=== PATIENT | male | born 1950 | race Caucasian/White ===

== ENCOUNTER 2016-07-19 08:24 | Outpatient (CLI) | payer OTHER ==
[2013-03-04 19:24] VITALS: BP 139/77
[2016-07-19 09:20] LABS: eGFR (African) > 60; eGFR (Non-African) > 60
== END 2016-07-19 08:25 ==
LOC: LAB 08:24
PROVIDERS: ATTEND Family Medicine
DX: E11.9 Type 2 diabetes mellitus without complications (principal); Z11.59 Encounter for screening for other viral diseases
CPT/HCPCS: 80053; 80061; 82043; 83036; 86803

== ENCOUNTER 2017-01-18 08:27 | Outpatient (CLI) | payer OTHER ==
[2013-03-04 19:24] VITALS: BP 139/77
[2017-01-18 09:17] LABS: eGFR (African) > 60; eGFR (Non-African) > 60
== END 2017-01-18 08:30 ==
LOC: LAB 08:27
PROVIDERS: ATTEND Family Medicine
DX: E11.9 Type 2 diabetes mellitus without complications (principal)
CPT/HCPCS: 36415; 80053; 83036

== ENCOUNTER 2017-02-22 06:59 | Outpatient (CLI) | payer OTHER ==
[2013-03-04 19:24] VITALS: BP 139/77
== END 2017-02-22 07:00 ==
LOC: LAB 06:59
PROVIDERS: ATTEND Family Medicine
DX: Z53.9 Procedure and treatment not carried out, unspecified reason (principal)

== ENCOUNTER 2017-07-21 12:10 | Outpatient (CLI) | payer OTHER ==
[2013-03-04 19:24] VITALS: BP 139/77
[2017-07-21 13:15] LABS: eGFR (African) > 60; eGFR (Non-African) > 60
== END 2017-07-21 12:11 ==
LOC: LAB 12:10
PROVIDERS: ATTEND Family Medicine
DX: E11.9 Type 2 diabetes mellitus without complications (principal); Z12.5 Encounter for screening for malignant neoplasm of prostate
CPT/HCPCS: 36415; 80053; 80061; 82043; 83036; 84153; G0103

== ENCOUNTER 2017-10-24 08:54 | Outpatient (CLI) | payer OTHER ==
[2013-03-04 19:24] VITALS: BP 139/77
[2017-10-24 09:55] LABS: eGFR (Non-African) > 60
== END 2017-10-24 08:55 ==
LOC: LAB 08:54
PROVIDERS: ATTEND Family Medicine
DX: E11.9 Type 2 diabetes mellitus without complications (principal)
CPT/HCPCS: 36415; 80053; 83036

== ENCOUNTER 2018-04-24 08:35 | Outpatient (CLI) | payer OTHER ==
[2013-03-04 19:24] VITALS: BP 139/77
[2018-04-24 09:07] LABS: eGFR (Non-African) > 60
== END 2018-04-24 08:36 ==
LOC: LAB 08:35
PROVIDERS: ATTEND Family Medicine
DX: E11.9 Type 2 diabetes mellitus without complications (principal)
CPT/HCPCS: 36415; 80053; 80061; 82043; 83036